=== PATIENT | male | born 1960 | race Caucasian/White ===

== ENCOUNTER 2016-05-09 10:52 | Emergency (ER) | payer MEDICARE, OTHER ==
[~2016-05-09] VITALS: Ht 182.9 cm; Wt 63.5 kg
[~2016-05-09 10:52] MED LIST: ABAC1TAB3 PO; ATAZ100C PO; LISI10TA5 PO; LORA10TA7 PO; RITO100T PO
[2016-05-09 13:01] VITALS: BP 103/77
== END 2016-05-09 13:02 | disposition home or self-care (01) ==
LOC: ER 11:10
DX: J40 Bronchitis, not specified as acute or chronic (principal); F31.9 Bipolar disorder, unspecified; I10 Essential (primary) hypertension; Z88.0 Allergy status to penicillin; Z88.2 Allergy status to sulfonamides; Z88.8 Allergy status to other drugs, medicaments and biological substances; Z88.1 Allergy status to other antibiotic agents
CPT/HCPCS: 71010; 99283; A4606; Z7610

== ENCOUNTER 2016-08-28 07:03 | Emergency (ER) | payer MEDICARE, OTHER ==
[~2016-08-28] VITALS: Ht 182.9 cm; Wt 63.5 kg
[2016-08-28 07:11] VITALS: BP 133/67
[2016-08-28] MEDS ORDERED: IBUPROFEN 600 MG TABLET PO ONE (07:30)
== END 2016-08-28 07:24 | disposition home or self-care (01) ==
LOC: ER 07:03
DX: M25.572 Pain in left ankle and joints of left foot (principal); I10 Essential (primary) hypertension; Z88.0 Allergy status to penicillin; Z88.2 Allergy status to sulfonamides; Z88.6 Allergy status to analgesic agent
CPT/HCPCS: A4606; Z7610

== ENCOUNTER 2018-09-01 12:04 | Emergency (ER) | payer MEDICARE, OTHER ==
[~2018-09-01] VITALS: Ht 182.9 cm; Wt 67.1 kg
--- NOTE | 2018-09-01 12:31 | NUR ---
PATIENT ARRIVED AMBULATORY WITH C/O ABD PAIN X 1 WK, -N/V/D. NO ACUTE DISTRESS.
--- NOTE | 2018-09-01 12:32 | NUR ---
URINE COLLECTED AND SEND TO LAB
[2018-09-01 12:45] LABS: BASOPHILS # (AUTO) 0.3 /CMM (0.0-0.2); BASOPHILS % (AUTO) 2.2 % (0.0-2.0); EOSINOPHILS % (AUTO) 2.1 % (0.0-6.0); HEMATOCRIT 42 % (39-51); HEMOGLOBIN 14.4 g/dL (13.5-17.5); LYMPHOCYTES # (AUTO) 0.8 /CMM (0.8-4.8); LYMPHOCYTES % (AUTO) 6.2 % (20.0-44.0); MEAN CORPUSCULAR HGB CONC 34 g/dl (31.0-36.0); MEAN CORPUSCULAR VOLUME 91 fL (80-96); MONOCYTES # (AUTO) 1.5 /CMM (0.1-1.30); MONOCYTES % (AUTO) 11.4 % (2.0-12.0); NEUTROPHILS # (AUTO) 10.1 /CMM (1.8-8.9); NEUTROPHILS % (AUTO) 78.1 % (43.0-81.0); PLATELET COUNT (AUTO) 285 /CMM (150-450); RED BLOOD CELL COUNT(AUTO) 4.66 MIL/uL (4.5-6.0)
[2018-09-01] MEDS ORDERED: IV NS 0.9% 1,000 ML BAG IV ONE (13:00)
[2018-09-01 13:08] LABS: ALBUMIN 2.4 g/dL (3.4-5.0); BILIRUBIN,DIRECT 0.1 mg/dL (0.0-0.2); BILIRUBIN,TOTAL 0.3 mg/dL (0.2-1.0); CALCIUM, SERUM 8.8 mg/dL (8.5-10.1); CREATININE 1.8 mg/dL (0.6-1.3); POTASSIUM 5.2 mmol/L (3.5-5.1); TOTAL PROTEIN, SERUM 6.8 g/dL (6.4-8.2)
[2018-09-01 13:18] LABS: APPEARANCE,URINE Slightly Cloudy (CLEAR); BILIRUBIN,URINE Negative (NEGATIVE); BLOOD, URINE Trace-intact Ery/uL (NEGATIVE); COLOR,URINE Yellow (YELLOW); KETONES,URINE Negative (NEGATIVE); LEUKOCYTE ESTERASE ,URINE Moderate (NEGATIVE); NITRITE, URINE Positive (NEGATIVE); PH,URINE 5.5 (5.0-8.0); PROTEIN,URINE 100 mg/dl (NEGATIVE); UGLUCOSE Negative (NEGATIVE); UROBILINOGEN,URINE 0.2 EU/dL (0.2)
[2018-09-01 13:34] LABS: BACTERIA,URINE Many /HPF (None Seen); SQUAMOUS EPITHELIAL CELL,UR Moderate /HPF (None Seen); WBC,URINE 21-50 /HPF (0-3)
[2018-09-01] MEDS ORDERED: CIPROFLOXACIN IV RTU 400 MG in PREMIX 1 EA IV SCH (14:00)
[2018-09-01] MEDS ORDERED: CIPROFLOXACIN IV RTU 200 ML IV ONE (14:24)
--- NOTE | 2018-09-01 15:00 | NUR ---
HEENA DEGRASSE PA AT BEDSIDE
--- NOTE | 2018-09-01 15:15 | NUR ---
PATIENT DID NOT WANT TO FINISH IV ATB. RISKS AND BENEFITS EXPLAINED BUT TO NO AVAIL, PATIENT STRONGLY REFUSED. HEENA NEGRETE MADE AWARE.
[2018-09-01] MEDS ORDERED: ACETAMINOPHEN ES 500 MG TABLET PO ONE (15:30)
--- NOTE | 2018-09-01 15:35 | NUR ---
PATIENT LEFT AGAINST MEDICAL ADVICE. PATIENT REMOVED IV, PRESSURE DRESSING PLACED ON SITE. IV TIP INTACT. DISCHARGE INSTRUCTIONS AND EDUCATION GIVEN TO PATIENT AND VERBALIZED UNDERSTANDING. LEFT ER AMBULATORY. ER MD AWARE
[2018-09-01 16:01] VITALS: BP 125/71
== END 2018-09-01 15:35 | disposition left against medical advice (07) ==
LOC: ER 12:15
DX: N12 Tubulo-interstitial nephritis, not specified as acute or chronic (principal); E87.5 Hyperkalemia; I10 Essential (primary) hypertension; Z88.0 Allergy status to penicillin; Z88.2 Allergy status to sulfonamides; Z88.1 Allergy status to other antibiotic agents; Z88.8 Allergy status to other drugs, medicaments and biological substances; Z60.2 Problems related to living alone; Z79.899 Other long term (current) drug therapy
CPT/HCPCS: 36415; 80048; 80076; 81001; 83605; 85025; 87040 ×2; 87077; 87086; 87186; 96365; 99283; A4216; J0744 ×2; J7030; 81000-TC

== ENCOUNTER 2025-02-09 10:43 | Inpatient (IN) | payer MEDICARE, OTHER ==
[~2025-02-09] VITALS: Ht 185.4 cm; Wt 68.0 kg
[~2025-02-09 10:43] MED LIST changes: +LISI10TA29 PO; -LISI10TA5 PO
[2025-02-09 11:00] VITALS: BP 143/103; TEMP 97.5; O2SAT 100
[2025-02-09] MEDS ORDERED: DAPA10TA PO (12:18)
[2025-02-09] MEDS ORDERED: UBID200C35 PO (12:18)
[2025-02-09] MEDS ORDERED: METO25TA4 PO (12:18)
[2025-02-09] MEDS ORDERED: FURO-145 PO (12:18)
[2025-02-09] MEDS ORDERED: APIX5TAB PO (12:18)
[2025-02-09] MEDS ORDERED: SPIR25TA6 PO (12:18)
[2025-02-09] MEDS ORDERED: LOSA25TA3 PO (12:18)
[2025-02-09] MEDS ORDERED: BICT1TAB PO (12:18)
[2025-02-09] MEDS ORDERED: PRAV40TA3 PO (12:18)
[2025-02-09] MEDS ORDERED: MAG HYDROX/AL HYDROX/SIMETH 30 ML UDC PO PRN (13:30)
[2025-02-09] MEDS ORDERED: Medication Not On Formulary EA (Abacavir Sulfate/Lamivudine (Epzicom Tablet) 1 TAB) PO SCH (13:30)
[2025-02-09] MEDS ORDERED: Z GUARD REMEDY 4 OZ OINT TP PRN (13:30)
[2025-02-09] MEDS ORDERED: ONDANSETRON HCL/PF 4 MG/2 ML VIAL IVP PRN (13:30)
[2025-02-09] MEDS ORDERED: MAGNESIUM HYDROXIDE 30 ML UDC PO PRN (13:30)
[2025-02-09 16:16] VITALS: BP 135/96; TEMP 98.1; O2SAT 98
[2025-02-09] MEDS: BIKTARVY PO SCH (17:16)
[2025-02-09] MEDS: FUROSEMIDE 40 MG/4 ML VIAL IV SCH (17:18)
[2025-02-09] MEDS: APIXABAN 5 MG TABLET PO SCH (17:19)
[2025-02-09 20:00] VITALS: BP 136/96; TEMP 97.5; O2SAT 100
[2025-02-09] MEDS ORDERED: RITONAVIR 100 MG CAPSULE PO SCH (22:00)
[2025-02-09 23:22] VITALS: BP 136/96; TEMP 97.5; O2SAT 100
[2025-02-10] VITALS (8 sets, daily range): BP systolic 99–144; BP diastolic 66–100; TEMP 97.3–98.1; O2SAT 96–99
[2025-02-10 06:56] LABS: PLATELET COUNT (AUTO) 229 K/uL (150-450); RED BLOOD CELL COUNT(AUTO) 5.34 MIL/uL (4.5-6.0); RED CELL DISTRIBUTION WIDTH 16.7 % (11.5-15.0); WHITE BLOOD COUNT (AUTO) 8.3 K/uL (4.3-11.0)
[2025-02-10 07:36] LABS: CALCIUM, SERUM 8.9 mg/dL (8.5-10.1); CREATININE 1.4 mg/dL (0.6-1.3); PHOSPHORUS 5.0 mg/dL (2.5-4.9); SODIUM SERUM 139.0 mmol/L (136-145); UREA NITROGEN, BLOOD 39.0 mg/dL (7-18)
[2025-02-10] MEDS: METOPROLOL SUCCINATE 25 MG TAB.SR.24H PO SCH (08:36)
[2025-02-10] MEDS: ASPIRIN 81 MG TAB.CHEW PO SCH (08:37)
[2025-02-10] MEDS: LOSARTAN POTASSIUM 25 MG TABLET PO SCH (08:38)
[2025-02-10] MEDS: FUROSEMIDE 100 MG/10 ML VIAL IV SCH (08:49)
[2025-02-10] MEDS: SPIRONOLACTONE 25 MG TABLET PO SCH (08:55)
[2025-02-10] MEDS ORDERED: ASPIRIN 81 MG TAB.CHEW PO SCH (09:00)
[2025-02-10] MEDS ORDERED: BIKTARVY 50-200-25 MG TABLET NF PO SCH (09:00)
[2025-02-10] MEDS ORDERED: FUROSEMIDE 20 MG TABLET PO SCH (09:00)
[2025-02-10] MEDS ORDERED: BIKTARVY PO SCH (09:00)
[2025-02-10] MEDS: DAPAGLIFLOZIN PROPANEDIOL 10 MG TABLET PO SCH (10:34)
[2025-02-10] MEDS: ACETAMINOPHEN 325 MG TABLET PO PRN (16:12)
[2025-02-10] MEDS ORDERED: SODIUM ZIRCONIUM CYCLOSILICATE 5 GM POWD.PACK PO ONE (19:30)
[2025-02-10] MEDS: SODIUM ZIRCONIUM CYCLOSILICATE 10 GM POWD.PACK PO ONE (20:45)
[2025-02-10 23:18] LABS: PLATELET COUNT (AUTO) 259 K/uL (150-450); RED BLOOD CELL COUNT(AUTO) 6.48 MIL/uL (4.5-6.0); RED CELL DISTRIBUTION WIDTH 16.3 % (11.5-15.0); WHITE BLOOD COUNT (AUTO) 7.6 K/uL (4.3-11.0)
[2025-02-10 23:33] LABS: ASPARTATE AMINOTRANSFERASE 41.0 U/L (15-37); CALCIUM, SERUM 9.1 mg/dL (8.5-10.1); CREATININE 2.1 mg/dL (0.6-1.3); PHOSPHORUS 7.1 mg/dL (2.5-4.9); SODIUM SERUM 135.0 mmol/L (136-145); TOTAL PROTEIN, SERUM 7.6 g/dL (6.4-8.2); UREA NITROGEN, BLOOD 49.0 mg/dL (7-18)
[2025-02-11] VITALS: BP 97/73; TEMP 97.5; O2SAT 99
[2025-02-11 00:36] LABS: EOSINOPHILS % (MANUAL) 2 % (0-4); LYMPHOCYTES % (MANUAL) 21 % (16-48); MONOCYTES % (MANUAL) 9 % (0-11.0); NEUTROPHILS % (MANUAL) 68 (42-76)
[2025-02-11 00:37] LABS: PLATELET ESTIMATE ADEQUATE
[2025-02-11 04:00] VITALS: BP 100/70; TEMP 98.1; O2SAT 100
[2025-02-11 06:05] LABS: PLATELET COUNT (AUTO) 289 K/uL (150-450); RED BLOOD CELL COUNT(AUTO) 6.29 MIL/uL (4.5-6.0); RED CELL DISTRIBUTION WIDTH 16.2 % (11.5-15.0); WHITE BLOOD COUNT (AUTO) 6.3 K/uL (4.3-11.0)
[2025-02-11 06:17] LABS: CREATINE KINASE, TOTAL 184.0 U/L (39-308)
[2025-02-11 06:22] LABS: ASPARTATE AMINOTRANSFERASE 41.0 U/L (15-37); CALCIUM, SERUM 8.8 mg/dL (8.5-10.1); CREATININE 1.9 mg/dL (0.6-1.3); PHOSPHORUS 6.7 mg/dL (2.5-4.9); SODIUM SERUM 136.0 mmol/L (136-145); TOTAL PROTEIN, SERUM 6.8 g/dL (6.4-8.2); UREA NITROGEN, BLOOD 47.0 mg/dL (7-18)
[2025-02-11 08:00] VITALS: BP 105/79; TEMP 97.7; O2SAT 96
[2025-02-11] MEDS: SEVELAMER CARBONATE 800 MG POWD.PACK PO SCH (09:28)
[2025-02-11 11:30] VITALS: BP 100/67; TEMP 97.7; O2SAT 97
[2025-02-11 16:00] VITALS: BP 94/57; TEMP 98.1; O2SAT 98
[2025-02-11 21:09] VITALS: BP 105/75; TEMP 97.9; O2SAT 96
[2025-02-12 01:09] VITALS: BP 122/77; TEMP 97.2; O2SAT 100
[2025-02-12 04:00] VITALS: BP 105/70; TEMP 97.9; O2SAT 96
[2025-02-12 04:29] VITALS: BP 109/75; TEMP 97.3; O2SAT 96
[2025-02-12 06:07] LABS: PTH, INTACT 98 pg/mL (15-65)
[2025-02-12 06:24] LABS: CALCIUM, SERUM 9.0 mg/dL (8.5-10.1); CREATININE 2.3 mg/dL (0.6-1.3); SODIUM SERUM 126.0 mmol/L (136-145); UREA NITROGEN, BLOOD 70.0 mg/dL (7-18)
[2025-02-12 07:45] VITALS: BP 114/54; TEMP 98.1; O2SAT 98
[2025-02-12 08:00] VITALS: BP 114/54; TEMP 98.1; O2SAT 98
[2025-02-12 09:28] VITALS: BP 114/54
[2025-02-14 09:11] LABS: *SPE A/G RATIO 0.9 (0.7-1.7); *SPE ALBUMIN 2.9 g/dL (2.9-4.4); *SPE ALPHA-1-GLOBULIN 0.3 g/dL (0.0-0.4); *SPE ALPHA-2-GLOBULIN 0.9 g/dL (0.4-1.0); *SPE BETA GLOBULIN 1.2 g/dL (0.7-1.3); *SPE GLOBULIN, TOTAL 3.2 g/dL (2.2-3.9); *SPE M-SPIKE Not Observed g/dL (Not Observed); *SPE PROTEIN TOTAL 6.1 g/dL (6.0-8.5); *SPEGAMMA GLOBULIN 0.8 g/dL (0.4-1.8)
== END 2025-02-12 12:55 | disposition left against medical advice (07) | DRG 280 ==
LOC: TELE 10:43
PROVIDERS: ADMIT Nurse Practitioner Acute Care
DX: I13.0 Hypertensive heart and chronic kidney disease with heart failure and stage 1 through stage 4 chronic kidney disease, or unspecified chronic kidney disease (principal); E43 Unspecified severe protein-calorie malnutrition; I21.A1 Myocardial infarction type 2; I50.23 Acute on chronic systolic (congestive) heart failure; N17.0 Acute kidney failure with tubular necrosis; J96.01 Acute respiratory failure with hypoxia; R64 Cachexia; I48.20 Chronic atrial fibrillation, unspecified; F15.188 Other stimulant abuse with other stimulant-induced disorder; N18.9 Chronic kidney disease, unspecified; Z68.1 Body mass index [BMI] 19.9 or less, adult; F41.9 Anxiety disorder, unspecified; Z88.0 Allergy status to penicillin; Z88.2 Allergy status to sulfonamides; D75.1 Secondary polycythemia; E83.39 Other disorders of phosphorus metabolism; E87.5 Hyperkalemia; N25.0 Renal osteodystrophy
CPT/HCPCS: 36415; 71045-TC; 76770-TC; 80048-TC; 80053-TC; 82550-TC; 82570-TC; 83735-TC; 83880; 83970; 84100-TC; 84155; 84165; 84300-TC; 84484-TC; 85025-TC; 85027-TC; 93307-TC; 97116-TC; 97530-TC; G0378; J1938

== ENCOUNTER 2025-03-04 13:11 | Inpatient (IN) | payer MEDICARE, OTHER ==
[~2025-03-04] VITALS: Ht 185.4 cm; Wt 72.6 kg
[~2025-03-04 13:11] MED LIST changes: +APIX5TAB PO; +BICT1TAB PO; +DAPA10TA PO; +FURO-145 PO; -LISI10TA29 PO; +LOSA25TA3 PO; +METO25TA4 PO; +PRAV40TA3 PO; +SPIR25TA6 PO; +UBID200C35 PO
[2025-03-04 14:05] LABS: PLATELET COUNT (AUTO) 370 K/uL (150-450); RED BLOOD CELL COUNT(AUTO) 5.29 MIL/uL (4.5-6.0); RED CELL DISTRIBUTION WIDTH 15.6 % (11.5-15.0); WHITE BLOOD COUNT (AUTO) 7.9 K/uL (4.3-11.0)
[2025-03-04 14:13] LABS: CALCIUM, SERUM 8.4 mg/dL (8.5-10.1); CREATININE 1.9 mg/dL (0.6-1.3); SODIUM SERUM 139.0 mmol/L (136-145); UREA NITROGEN, BLOOD 34.0 mg/dL (7-18)
[2025-03-04 14:27] LABS: NT-PRO BNP > 25000 pg/mL (0-125)
[2025-03-04] MEDS ORDERED: ASPIRIN EC 325 MG TABLET.DR PO ONE (14:57)
[2025-03-04] MEDS ORDERED: ALBUTEROL FS 2.5 MG/0.5 ML VIAL.NEB NEB PRN (15:00)
[2025-03-04] MEDS ORDERED: ONDANSETRON HCL/PF 4 MG/2 ML VIAL IVP PRN (15:00)
[2025-03-04] MEDS ORDERED: hydrALAZINE HCL IV 20 MG VIAL IV PRN (15:00)
[2025-03-04] MEDS: ASPIRIN EC 325 MG TABLET.DR PO ONE (15:00)
[2025-03-04] MEDS ORDERED: IOHEXOL-350 100 ML VIAL IV ONE (15:30)
[2025-03-04] MEDS ORDERED: IV NS 0.9% 250 ML IV ONE (15:32)
[2025-03-04] MEDS: ACETAMINOPHEN 325 MG TABLET PO PRN (16:20)
[2025-03-04] MEDS: FUROSEMIDE 20 MG/2 ML VIAL IV SCH (16:21)
[2025-03-04] MEDS: APIXABAN 5 MG TABLET PO SCH (16:23)
[2025-03-04 16:24] VITALS: BP 121/73; TEMP 97.7; O2SAT 99
[2025-03-04] MEDS: IPRATROPIUM NEB FS 0.5 MG/2.5 ML AMPUL.NEB NEB SCH (19:58)
[2025-03-04] MEDS: ALBUTEROL FS 2.5 MG/0.5 ML VIAL.NEB NEB SCH (19:58)
[2025-03-04 19:59] VITALS: O2SAT 94
[2025-03-04 20:00] VITALS: BP 132/88; TEMP 97.5; O2SAT 100
[2025-03-04 20:14] VITALS: O2SAT 99
[2025-03-04 21:06] LABS: AMPHETAMINE, URINE NEGATIVE (NEGATIVE); BARBITURATE, URINE NEGATIVE (NEGATIVE); BENZODIAZEPINE, URINE NEGATIVE (NEGATIVE); CANNABINOID, URINE NEGATIVE (NEGATIVE); COCCAINE, URINE NEGATIVE (NEGATIVE); OPIATE, URINE NEGATIVE (NEGATIVE)
[2025-03-04] MEDS: ATORVASTATIN 10 MG TABLET PO SCH (21:07)
[2025-03-05] VITALS (8 sets, daily range): BP systolic 102–127; BP diastolic 66–92; TEMP 97.5–98.1; O2SAT 94–100
[2025-03-05 06:33] LABS: PLATELET COUNT (AUTO) 375 K/uL (150-450); RED BLOOD CELL COUNT(AUTO) 5.75 MIL/uL (4.5-6.0); RED CELL DISTRIBUTION WIDTH 15.8 % (11.5-15.0); WHITE BLOOD COUNT (AUTO) 10.0 K/uL (4.3-11.0)
[2025-03-05 06:53] LABS: ASPARTATE AMINOTRANSFERASE 23.0 U/L (15-37); CALCIUM, SERUM 9.2 mg/dL (8.5-10.1); CREATININE 1.6 mg/dL (0.6-1.3); PHOSPHORUS 3.9 mg/dL (2.5-4.9); SODIUM SERUM 134.0 mmol/L (136-145); TOTAL PROTEIN, SERUM 8.6 g/dL (6.4-8.2); UREA NITROGEN, BLOOD 33.0 mg/dL (7-18)
[2025-03-05] MEDS: SPIRONOLACTONE 25 MG TABLET PO SCH (08:52)
[2025-03-05] MEDS: METOPROLOL SUCCINATE 25 MG TAB.SR.24H PO SCH (08:52)
[2025-03-05] MEDS: LOSARTAN POTASSIUM 25 MG TABLET PO SCH (08:52)
[2025-03-05] MEDS: MORPHINE SULFATE INJ 2 MG/ML DISP.SYRIN IV PRN (13:09)
== END 2025-03-05 13:56 | disposition home or self-care (01) | DRG 280 ==
LOC: ER 13:41 → TELE1 15:15
PROVIDERS: ADMIT Internal Medicine; ATTEND Internal Medicine
DX: I13.0 Hypertensive heart and chronic kidney disease with heart failure and stage 1 through stage 4 chronic kidney disease, or unspecified chronic kidney disease (principal); E43 Unspecified severe protein-calorie malnutrition; I21.A1 Myocardial infarction type 2; I50.23 Acute on chronic systolic (congestive) heart failure; N17.0 Acute kidney failure with tubular necrosis; J96.01 Acute respiratory failure with hypoxia; R64 Cachexia; I48.20 Chronic atrial fibrillation, unspecified; Z79.01 Long term (current) use of anticoagulants; N18.9 Chronic kidney disease, unspecified; E78.5 Hyperlipidemia, unspecified; Z88.0 Allergy status to penicillin; Z88.2 Allergy status to sulfonamides; Z68.21 Body mass index [BMI] 21.0-21.9, adult; E83.89 Other disorders of mineral metabolism; F15.90 Other stimulant use, unspecified, uncomplicated; F41.9 Anxiety disorder, unspecified
CPT/HCPCS: 36415; 71045-TC; 80048-TC; 80053-TC; 83735-TC; 83880; 84100-TC; 84484-TC; 85025-TC; 85378-TC; 87081-TC; 94799-TC; G0378; J1938; J2270; J7050; Q9967